=== PATIENT | male | born 1960 | race Two or more races ===

== ENCOUNTER 2022-11-18 12:35 | Emergency (ER) | payer BC, OTHER ==
[~2022-11-18] VITALS: Ht 170.2 cm; Wt 78.0 kg
[2022-11-18] MEDS ORDERED: FLUORESCEIN SOD OPTH TEST STRIP OP ONE (14:30)
[2022-11-18] MEDS ORDERED: TETRACAINE HCL 0.5% OPTH(EYE) SOLN 4ML LEFTEYE ONE (14:30)
[2022-11-18 14:40] VITALS: BP 108/70
[2022-11-18] MEDS ORDERED: CIP03OS LEFTEYE (15:23)
== END 2022-11-18 15:46 | disposition home or self-care (01) ==
LOC: ER 12:35
DX: T15.02XA Foreign body in cornea, left eye, initial encounter (principal); X58.XXXA Exposure to other specified factors, initial encounter; Y93.89 Activity, other specified; Y92.89 Other specified places as the place of occurrence of the external cause; Y99.8 Other external cause status